=== PATIENT | female | born 1990 | race Caucasian/White ===

== ENCOUNTER 2017-11-26 08:32 | Day surgery (SDC) | payer OTHER ==
[~2017-11-26 08:32] MED LIST: ceFAZolin 2 GM/50 ML 2 GM/50 ML BAG IV ONE
[2017-11-26] MEDS ORDERED: LACTATED RINGERS 1,000 ML IV ONE ×2 (08:44→11:42)
[2017-11-26 09:10] LABS: HCG UR QUAL NEGATIVE
[2017-11-26] MEDS ORDERED: ONDANSETRON 4 MG/2 ML VIAL IVP ONE (10:30)
[2017-11-26] MEDS ORDERED: ACETAMINOPHEN 1,000 MG/100 ML 100 ML IV ONE (10:30)
[2017-11-26] MEDS ORDERED: KETOROLAC 30 MG/ML VIAL IVP ONE (10:30)
[2017-11-26] MEDS ORDERED: ROCURONIUM 50 MG/5 ML VIAL IVP ONE (10:30)
[2017-11-26] MEDS ORDERED: MIDAZOLAM 2 MG/2 ML VIAL IVP ONE (10:30)
[2017-11-26] MEDS ORDERED: PROPOFOL 200 MG/20 ML VIAL IVP ONE (10:30)
[2017-11-26] MEDS ORDERED: NEOSTIGMINE 1 MG/1 ML 10 ML MDV IVP ONE (10:30)
[2017-11-26] MEDS ORDERED: fentaNYL 100 MCG/2 ML VIAL IVP ONE (10:30)
[2017-11-26] MEDS ORDERED: SUCCINYLCHOLINE 200 MG/10 ML VIAL IVP ONE (10:30)
[2017-11-26] MEDS ORDERED: DEXAMETHASONE 4 MG/ML VIAL IVP ONE (10:30)
[2017-11-26] MEDS ORDERED: LIDOCAINE-MPF 2% 5 ML VIAL IM ONE (10:30)
[2017-11-26] MEDS ORDERED: GLYCOPYRROLATE 1 MG/5 ML VIAL IVP ONE (10:30)
[2017-11-26] MEDS ORDERED: BUPIVACAINE 0.5% PF 30 ML VIAL INFIL ONE (10:58)
[2017-11-26] MEDS: fentaNYL 100 MCG/2 ML VIAL ONE ×3 (12:30→12:54)
--- NOTE | 2017-11-26 12:54 | PROCEDURE REPORT ---
DATE OF SERVICE: 11/26/2017 Physician: Salena Freeman MD DATE OF SURGERY: 11/26/2017 SURGEON: Dr. Freeman. PREOPERATIVE DIAGNOSIS: Ventral hernia. POSTOPERATIVE DIAGNOSIS: Ventral hernia. PROCEDURE PERFORMED: Laparoscopic ventral hernia repair with mesh. INDICATIONS FOR PROCEDURE: This is a 27-year-old female who underwent a section several months ago and subsequently has an infraumbilical ventral hernia. FINDINGS: After obtaining informed consent from the patient, she was brought into the operating room and positioned on the operating table in supine position, taking note of pressure points. The patient was intubated by Anesthesia. She was administered perioperative antibiotics. SCD boots were applied. She was prepped and draped in the usual sterile fashion, and a timeout was taken according to protocol. An infraumbilical 1 cm incision was created and dissected down to the umbilical stalk. This was grasped and elevated and the Veress needle inserted into the abdominal cavity. The cavity was then insufflated. A 5 mm incision was placed along the patient's left lateral abdominal wall and using the Optiview trocar, the abdominal cavity was entered. The Veress needle was then removed and a 12 mm port was placed in the umbilicus. An additional 5 mm port was placed at the patient's left lower quadrant. The hernia defect was identified, but no hernia sac was present. The defect was measured by placing a measuring tape inside the abdominal cavity. The vertical access was noted to be 8 cm and on the horizontal axis was noted to be 5 cm. The measuring tape was then removed. The hernia defect was then closed by placing the Rodo-Kavon through the hernia defect and through the fascial edges and closing the defect with interrupted 0 Ethibond sutures. Four interrupted sutures were placed in this fashion. There was definitely tension on the sutures and when I initially attempted to tie down the first suture it broke. A #1 Prolene suture was then placed at this location in a similar fashion. This suture was able to be tied down, reapproximating the hernia defect. The Ethibond sutures were subsequently tied down in a similar fashion. Once the hernia defect was completely closed, an 8 x 15 cm Parietex dual layered mesh was selected for placement. 2-0 Vicryl sutures were placed on the vertical access of the mesh. It was then rolled upon itself inserted into the abdominal cavity. The Rodo-Kavon device was again utilized to grasp the sutures and bring them out through the abdominal wall repositioning the mesh to the ventral abdominal wall. The tacking device was then utilized to tack the mesh on the right lateral aspect. An additional 5 mm port was then placed in the right lower abdominal wall. The tacking device was again utilized in this location to complete tacking circumferentially to ensure the mesh was lying flat against the anterior abdominal wall. Once this was achieved, the suction device was used to suction a minimal amount of blood products which had drained from the multiple puncture sites and hemostasis was noted to be achieved. The Rodo-Kavon device was again used to close the 10 mm umbilical port site with 0 Vicryl suture in a figure of eight fashion. The abdominal cavity was allowed to desufflate. All ports were then removed, 30 mL of lidocaine was injected. The skin incisions were then closed with 4-0 Monocryl and Dermabond was applied. The patient was subsequently extubated and an abdominal binder applied. She was taken to the recovery room in stable condition. ESTIMATED BLOOD LOSS: 15 mL COMPLICATIONS: None. TD: 11/26/2017 13:52 NADEGE
[2017-11-26] MEDS ORDERED: oxyCOD/ACETAMIN 5 MG/325 MG TABLET PO ONE (13:39)
[2017-11-26] MEDS ORDERED: IBUPROFEN 600 MG TABLET PO ONE (14:46)
[2017-11-26] MEDS ORDERED: HYDROmorphone 1 MG/ML SYRINGE ONE (14:47)
[2017-11-26 15:32] VITALS: BP 124/67
== END 2017-11-26 08:33 | disposition home or self-care (01) ==
LOC: SDS 08:32
PROVIDERS: ATTEND Surgery
PROC: 0WUF4JZ Supplement Abdominal Wall with Synthetic Substitute, Percutaneous Endoscopic Approach (ICD-10-PCS; principal; 2017-11-26 11:45)
DX: K43.9 Ventral hernia without obstruction or gangrene (principal)
CPT/HCPCS: 49652; 81025; A9270; C1781; J0131; J0690; J1170; J7120